=== PATIENT | male | born 1960 | race Caucasian/White ===

== ENCOUNTER → 2020-02-13 14:46 | Outpatient (BNVA) | payer MEDICAID, SELFPAY | PROVIDERS: PCP Emergency Medicine; Visit Provider Anesthesiology | DX: G58.8 Other specified mononeuropathies (principal); M47.816 Spondylosis without myelopathy or radiculopathy, lumbar region; E66.01 Morbid (severe) obesity due to excess calories; Z68.43 Body mass index [BMI] 50.0-59.9, adult | CPT/HCPCS: 99203 ==

== ENCOUNTER 2023-03-17 08:15 | Outpatient (REF) | payer MEDICAID, SELFPAY ==
[2023-03-17 11:38] LABS: Alanine Aminotransferase 35 U/L (0-40); Albumin Level 4.1 g/dL (3.5-5.0); Alkaline Phosphatase 53 U/L (39-117); Anion Gap 11 (12-20); Aspartate Amino Transferase 28 U/L (5-37); Bilirubin Total 0.5 mg/dL (0.0-1.0); Blood Urea Nitrogen 17 mg/dL (9-16); Calcium 9.4 mg/dL (8.4-10.2); Carbon Dioxide 27 mmol/L (22-29); Chloride 103 mmol/L (96-108); Cholesterol 261 mg/dL (<200); Estimated Glomerular Filt Rate > 60; Glucose Random 119 mg/dL (60-115); HDL Cholesterol 64 mg/dL (>40); LDL Cholesterol Calculated 169 mg/dL (<100); Potassium 4.2 mmol/L (3.3-5.1); Sodium 137 mmol/L (135-145); Total Protein 7.4 g/dL (6.5-8.0); Triglycerides 144 mg/dL (<150)
[2023-03-17 11:54] LABS: ~HepC Num1 0.07 S/CO (0.00-0.79); ~Hepatitis C Antibody Nonreactive (Nonreactive)
[2023-03-17 12:11] LABS: Creatinine Urine 52.45 mg/dL; Microalbumin Urine < 5.0 mg/L
== END 2023-03-17 08:16 | disposition home or self-care (01) ==
LOC: HO.HHCL 08:15
PROVIDERS: Visit Provider Nurse Practitioner Family
DX: I10 Essential (primary) hypertension (principal); E11.00 Type 2 diabetes mellitus with hyperosmolarity without nonketotic hyperglycemic-hyperosmolar coma (NKHHC)
CPT/HCPCS: 36415; 80053; 80061; 82043; 82570; 86803

== ENCOUNTER 2023-12-09 07:25 | Emergency (ER) | payer MEDICAID, SELFPAY ==
[2023-12-09 07:30] VITALS: BP 138/68; PULSE 68; RESP 16; TEMP 36.1; O2SAT 97; BMI 41.6
--- NOTE | 2023-12-09 09:14 | ED_ITS ---
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 He states his pain is from his upper back to his lower back. He has notices some tingling in his hands when he goes to bed at night states he had previous back surgeries he had similar sensation that was more constant. He denies any falls or injuries he states he eats and drinks normally denies fevers chills cough or shortness of breath MD elicited complaint: back pain Related Data Home Medications ?Medication ?Instructions ?Recorded ?Confirmed ibuprofen 800 mg tablet 800 mg PO TID 02/13/20 metformin 500 mg tablet 500 mg PO BID 02/13/20 naproxen 500 mg tablet 500 mg PO BID 02/13/20 Previous Rx's ?Medication ?Instructions ?Recorded acetaminophen 325 mg tablet 325 mg PO QID PRN pain #90 tabs 12/09/23 (Tylenol) cyclobenzaprine 5 mg tablet 5 mg PO BEDTIME PRN muscle spasm 12/09/23 #20 tabs prednisone 20 mg tablet 60 mg (3 x 20 mg) PO DAILY Asthma 12/09/23 5 days #15 tabs Allergies Allergy/AdvReac Type Severity Reaction Status Date / Time No Known Allergies Allergy Verified 12/09/23 07:38 [No Known Allergies*] Review of Systems Review of Systems: Review of systems: General: Patient denies any fever chills recent illness or falls Musculoskeletal: Back pain denies any or body aches or other injuries HEENT: denies headache, runny nose, ear pain Respiratory: denies shortness of breath, cough Cardiovascular: no chest pain or palpitations : denies dysuria, frequency Abdomen: no nausea vomiting denies abdominal pain Extremities: no swelling, no pain Skin: no diaphoresis Yes all other systems are reviewed and are negative [facility] Past Medical History Medical History (Updated 12/09/23 @ 09:17 by Hadley Alvarado DO) Spondylosis of lumbar region without myelopathy or radiculopathy Morbid obesity Other specified mononeuropathies Social History Social History Advance Directives: No Advance Directives Information Provided: Yes Physical Exam Vital Signs: Vital Signs: Last Vital Signs Temp 97 F 12/09/23 07:30 Pulse 68 12/09/23 07:30 Resp 16 12/09/23 07:30 BP 138/68 12/09/23 07:30 Pulse Ox 97 12/09/23 07:30 O2 Del Method Room Air 12/09/23 07:30 BMI result Body Mass Index 41.6 General: Well-appearing well-nourished in no signs of distress HEENT: Normocephalic atraumatic Neck: No signs of JVD, no masses no tenderness or lymphadenopathy Cardiovascular: Regular rate and rhythm Respiratory: Clear to auscultation bilaterally Abdomen: Soft nontender no masses Extremities: Normal pedal pulses no signs of edema Skin: Dry warm no rashes Back: No tenderness full ROM Medical Decision Making Medical Decision Making MDM Narrative: Patient has no recent trauma no unexplained weight loss no neurological symptoms weakness numbness anywhere in the body patient is younger than 50 has no fever no intervening drug use no steroid use no history of cancer prostate renal breast or lung no recent surgeries to the back and no tenderness to the back on palpation no fevers chills sweats night pain when he does not have any morning stiffness that lasts longer than 30 minutes Patient looks well start the patient on prednisone send him home with prednisone Tylenol and cyclobenzaprine. Think the patient benefit from following up his surgeon who did his previous back surgeries patient is okay with this plan Differential Diagnosis Differential Diagnoses: The differential diagnosis associated with the presentation includes Back pain back strain tingling of the hands more difficult this could be electrolyte abnormality but since only happens at night it is likely situational I do not think there is any tests that need to do External Record Review External record reviewed: Inpatient record, Office record and Outpatient record Discharge Plan Discharge Clinical Impression: Strain of lumbar region, Lumbar radiculopathy, Thoracic back pain Patient Disposition: Home, Self-Care Instructions: Back Pain (ED), Lower Back Exercises (ED) Additional Instructions: You were seen today for back pain. You were prescribed medications including prednisone and a muscle relaxant called cyclobenzaprine. Please do not drink or operate machinery while taking the cyclobenzaprine. Recommend on these cyclobenzaprine night to help you sleep. If you have any other concerns please do not hesitate to come back to the emergency department. Prescriptions: New acetaminophen [Tylenol] 325 mg tablet 325 mg PO QID PRN (Reason: pain) Qty: 90 0RF prednisone 20 mg tablet 60 mg PO DAILY 5 Days Qty: 15 0RF cyclobenzaprine 5 mg tablet 5 mg PO BEDTIME PRN (Reason: muscle spasm) Qty: 20 0RF Print Language: Pashto
[2023-12-09 09:29] VITALS: BP 138/68; PULSE 68; RESP 16; TEMP 36.1; O2SAT 97
[2023-12-09] MEDS: predniSONE 20 MG TABLET 60 MG PO (09:29)
[2023-12-09] MEDS: Acetaminophen 325 MG TABLET 650 MG PO (09:29)
== END 2023-12-09 09:30 | disposition home or self-care (01) ==
PROVIDERS: Emergency Provider Student in an Organized Health Care Education/Training Program; PCP Internal Medicine
DX: S39.012A Strain of muscle, fascia and tendon of lower back, initial encounter (principal); X58.XXXA Exposure to other specified factors, initial encounter; M54.16 Radiculopathy, lumbar region; M54.6 Pain in thoracic spine; Y93.9 Activity, unspecified; Y92.9 Unspecified place or not applicable; Y99.9 Unspecified external cause status
CPT/HCPCS: 99283

== ENCOUNTER 2024-01-17 09:22 | Outpatient (REF) | payer MEDICAID, SELFPAY ==
[2024-01-17 12:01] LABS: Estimated Average Glucose 148 mg/dL; Hemoglobin A1c % 6.8 % (<6.0)
[2024-01-17 12:10] LABS: Alanine Aminotransferase 34 U/L (0-40); Albumin Level 4.2 g/dL (3.5-5.0); Alkaline Phosphatase 55 U/L (39-117); Anion Gap 12 (12-20); Aspartate Amino Transferase 28 U/L (5-37); Bilirubin Total 0.5 mg/dL (0.0-1.0); Blood Urea Nitrogen 15 mg/dL (9-16); Calcium 9.7 mg/dL (8.4-10.2); Carbon Dioxide 27 mmol/L (22-29); Chloride 102 mmol/L (96-108); Cholesterol 334 mg/dL (<200); Estimated Glomerular Filt Rate > 60; Glucose Random 130 mg/dL (60-115); HDL Cholesterol 60 mg/dL (>40); LDL Cholesterol Calculated 195 mg/dL (<100); Potassium 4.3 mmol/L (3.3-5.1); Sodium 137 mmol/L (135-145); Total Protein 7.6 g/dL (6.5-8.0); Triglycerides 397 mg/dL (<150)
[2024-01-17 12:27] LABS: Prostate Specific Antigen Scr 0.49 ng/mL (<0.05-4.0)
== END 2024-01-17 09:23 | disposition home or self-care (01) ==
LOC: HO.HHCL 09:22
PROVIDERS: Visit Provider Nurse Practitioner Family
DX: Z00.00 Encounter for general adult medical examination without abnormal findings (principal); E78.2 Mixed hyperlipidemia; E11.9 Type 2 diabetes mellitus without complications
CPT/HCPCS: 36415; 80053; 80061; 83036; 84153

== ENCOUNTER 2025-02-20 10:19 | Emergency (ER) | payer MEDICAID, SELFPAY ==
--- NOTE | ~2025-02-20 | XR_ITS ---
EXAMINATION: XR LUMBOSACRAL SPINE CLINICAL INFORMATION: right low back pain COMPARISON: 10/17/2018. TECHNIQUE: Three views of the lumbosacral spine. FINDINGS: No significant scoliosis. There is a normal lumbar lordosis. Alignment is anatomic without subluxation. No acute fracture, compression deformity, or suspicious bone lesion. Superior endplate Schmorl's nodes noted in L1. Sclerosis of the endplates noted at T12-L1, and to a lesser degree at L5-S1. Moderate disc degeneration present at L5-S1, and also at T11-T12. Moderate to severe degeneration noted at T12-L1. Disc spaces otherwise largely preserved. Facets are normally aligned. There are hypertrophic degenerative facet changes most notable spanning L4-S1. The sacrum is intact. There is sclerosis and irregularity of the SI joints suggesting inflammatory arthropathy. There is no soft tissue abnormality. XR/XR lumbar spine 2-3V IMPRESSION: 1. No acute bony abnormality of the lumbar spine. 2. Mild to moderate lumbar spondylosis, mildly worsened particularly at T11-T12 and T12-L1. Mild worsening at L5-S1. 3. Sclerosis and irregularity of the SI joints suggesting inflammatory arthropathy. Electronically signed by: Cameron Tsai MD 02/20/2025 11:14 AM EDT
--- NOTE | ~2025-02-20 | XR_ITS ---
EXAMINATION: XR WRIST 3 OR MORE VIEWS RIGHT HISTORY: pain to right 2nd, 3rd digits COMPARISON: There are no prior studies available for comparison. FINDINGS: Four views of the right wrist including a scaphoid view are submitted. Osseous mineralization is normal. A corticated osseous density at the dorsum of the wrist may represent an old triquetral radial fracture. No definite acute fracture is seen. The joint spaces are preserved. The soft tissues are unremarkable. XR/XR wrist RT min 3V IMPRESSION: No evidence of acute fracture of the right wrist. Electronically signed by: Yung Morales MD 02/20/2025 11:12 AM EDT
--- NOTE | ~2025-02-20 | XR_ITS ---
EXAMINATION: XR KNEE, LEFT CLINICAL INFORMATION: acute on chronic pain COMPARISON: September 04, 2018 TECHNIQUE: Four views of the left knee. FINDINGS: There is moderate narrowing of the medial joint space, similar to the prior. Lateral joint space is minimally narrowed, increased since the prior. There is mild medial subluxation of the distal femur, increased since prior. There are tricompartmental marginal osteophytes, increased from the prior. There is a bony exostosis at the superior aspect of the medial femoral condyle likely from a remote MCL injury. There is a joint effusion. There is faint vascular calcification in the femoral artery. No fracture line is identified. XR/XR knee LT 4V IMPRESSION: Moderate osteoarthritis, increased since 2019. Joint effusion. Suspected remote MCL injury. Electronically signed by: Maycol Wilkerson MD 02/20/2025 11:17 AM EDT
--- NOTE | ~2025-02-20 | XR_ITS ---
EXAMINATION: XR HAND, RIGHT CLINICAL INFORMATION: pain to right 2nd 3rd digits COMPARISON: None available. TECHNIQUE: PA, lateral, and oblique views of the right hand. FINDINGS: There is mild narrowing of DIP joints, most advanced at the third digit. There is subchondral sclerosis, osteophytes, and degenerative cystic change in the head of the third middle phalanx. The fifth PIP joint demonstrates mild narrowing. There are marginal osteophytes and degenerative cystic change involving the second and third MCP joints. There is severe asymmetric narrowing with marginal osteophytes involving the IP joint of thumb and moderate radial subluxation of the distal phalanx. Corticated ossification, likely chronic, is visible dorsal to the carpus. No soft tissue calcifications are evident. There is positive ulnar variance measuring 5 mm. No fracture lines are identified. XR/XR hand RT min 3V IMPRESSION: Moderate degenerative changes. 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 Electronically signed by: Maycol Wilkerson MD 02/20/2025 11:13 AM EDT
[2025-02-20 10:37] VITALS: BP 165/79; PULSE 86; RESP 18; TEMP 37; O2SAT 97; BMI 46.0
--- NOTE | 2025-02-20 10:37 | ED_ITS ---
HPI - General Adult General Chief complaint: General Medical Stated complaint: knee and back pain Time Seen by Provider: 02/20/25 11:39 Source: patient and property damage claims adjustor (all interactions with this patient were facilitated with an [facility] electrical power station technician (Kaylin)) Mode of arrival: ambulatory Limitations: language barrier (all interactions with this patient were facilitated with an [facility] electrical power station technician (Kaylin)) History of Present Illness ED Provider: Anju Pedro PA-C HPI narrative: Patient is a 64 year old assigned male at with a history of right carpal tunnel syndrome, lumbar spondylosis, and left knee pain presenting to the emergency department today with approximately 1 month ago he fell and has been having increased left knee pain, right wrist pain, right hand pain, and low back pain. Patient states that the pain has been getting worse over the last few days and he has not followed up with anyone for any of this in years. Patient denies any other complaints at this time. Patient states that he has previously gotten injections in his left knee and right wrist. Related Data Home Medications ?Medication ?Instructions ?Recorded ?Confirmed ibuprofen 800 mg tablet 800 mg PO TID 02/13/20 metformin 500 mg tablet 500 mg PO BID 02/13/20 naproxen 500 mg tablet 500 mg PO BID 02/13/20 Previous Rx's ?Medication ?Instructions ?Recorded acetaminophen 325 mg tablet 325 mg PO QID PRN pain #90 tabs 12/09/23 (Tylenol) cyclobenzaprine 5 mg tablet 5 mg PO BEDTIME PRN muscle spasm 12/09/23 #20 tabs prednisone 20 mg tablet 60 mg (3 x 20 mg) PO DAILY A sthma 12/09/23 5 days #15 tabs Allergies Allergy/AdvReac Type Severity Reaction Status Date / Time No Known Allergies (No Known Allergy Verified 02/20/25 10:37 Allergies*) Review of Systems Constitutional: Constitutional: Reports as per HPI Eyes: Eyes: Reports as per HPI ENT: Reports as per HPI Cardiovascular: Cardiovascular: Reports as per HPI Respiratory: Respiratory: Reports as per HPI Gastrointestinal: Gastrointestinal: Reports as per HPI Genitourinary: Genitourinary: Reports as per HPI Musculoskeletal: Musculoskeletal: Reports as per HPI Integumentary/Breasts: Skin/Breast: Reports as per HPI Neurologic: Reports as per HPI Psychiatric: Psychiatric: Reports as per HPI Endocrine: Endocrine: Reports as per HPI Hematologic/Lymphatic: Hematologic/Lymphatic: Reports as per HPI Allergic/Immunologic: Allergic/Immunologic: Reports as per HPI [facility] Past Medical History Attestation statement: The following information was validated with the patient. Source: old records reviewed and nursing notes reviewed Medical History Spondylosis of lumbar region without myelopathy or radiculopathy Morbid obesity Other specified mononeuropathies Social History Social History Advance Directives: No Advance Directives Information Provided: No Physical Exam ED Vital Signs: Vital Signs - 24 hr 02/20/25 10:37 02/20/25 11:42 02/20/25 11:58 Temperature 98.6 F 97.8 F 97.8 F Pulse Rate 86 70 70 Respiratory Rate 18 18 18 Blood Pressure 165/79 H 148/79 H 148/79 H Pulse Oximetry 97 98 98 Oxygen Delivery Method Room Air Room Air Room Air BMI result Body Mass Index 46.0 Const General: cooperative, no acute distress, alert and awake Nutritional Appearance: well nourished Orientation/consciousness: patient oriented x3 HENMT Head: Yes normal to inspection and Yes atraumatic Ears: hearing grossly normal bilaterally and external ears normal General nose exam: Normal external nose present, no nasal discharge noted and no epistaxis Face and sinus: Yes normal facial exam, No abrasion and No laceration Mouth: Normal oral and palatal mucosa present, no drooling and no muffled voice Eyes General: appearance normal, both eyes and all related structures Periorbital: periorbital findings normal Eyelids: Yes eyelids normal Conjunctivae: conjunctivae normal Pupils: Equal, round and reactive pupils present EOM: EOMs intact bilaterally Neck Neck: Yes normal visual inspection and Yes full ROM Resp Effort & Inspection: normal respiratory effort and able to speak in complete sentences Neuro General: patient oriented x3, moves all extremities and CN's II-XI intact bilaterally Cranial nerves: Yes Equal, round and reactive pupils present Cognition (Neuro): normal cognition Extrem General: Yes normal to inspection, Yes full ROM and Yes capillary refill normal Psych Appearance: grossly normal Mental Status: mental status grossly normal Affect: normal affect Attitude: cooperative Thought process: Normal thought process present Thought content: Normal thought content present Insight: Good insight present (Psych) Course Course Course Narrative: This is a Rapid Medical Examination (RME) performed by Ana Winslow PA-C in triage. Full HPI, ROS, assessment and treatment plan per primary provider in the Main ED. Hx: 64 yo M hx morbid obesity, arthritis, lumbar radiculopathy, ere for eval of acute on chronic L knee pain. reports injections in L knee 2 yrs ago for arthritis. prescribed motrin for this, has been taking this x1 week without relief. no new injury/trauma/falls. also reporting burning pain to right 2nd and 3rd digits, worse at night. endorses injection to right hand 1 mo ago - follows w/ provider at [facility] for this, cannot recall the name. also endorses R low back pain radiating upward. states my vertebra are hurt . Plan: xrs Medications Administered Discontinued Medications Generic Name Dose Route Start Last Admin Trade Name Freq PRN Reason Stop Dose Admin Ketorolac Tromethamine 15 mg 02/20/25 11:43 02/20/25 11:48 Ketorolac Tromethamine 15 Mg/Ml Vial IM 02/20/25 11:44 15 mg ONCE ONE Administration Procedures Orthopedic Splinting/Casting Left knee: Side: left Lower Extremity Injury Location: knee Lower Extremity Immobilizer: knee immobilizer Other Orthopedic Equipment: crutches Medical Decision Making Medical Decision Making [facility] Narrative: Patient is a 64 year old assigned male at with a history of right carpal tunnel syndrome, lumbar spondylosis, and left knee pain presenting to the emergency department today with approximately 1 month ago he fell and has been having increased left knee pain, right wrist pain, right hand pain, and low back pain. Patient's physical exam was as noted in the physical exam portion of this note. Patient's right wrist and hand x-rays showed no acute process. Patient's left knee showed a possible MCL injury. Patient's lumbar spine x-ray showed no acute process but showed mild-moderate lumbar spondylosis. Given patient's recent fall, worsening pain, and x-ray - will treat as if left knee is sprained and has a possible MCL injury. Patient's right wrist / hand is most consistent with a carpal tunnel flare. Patient's low back pain is acute on chronic. I explained my physical exam findings as well as all test results to the patient. I answered all questions asked by the patient. Patient's left knee was placed in an immobilizer and the patient was given crutches with crutch training. Patient's left lower extremity PMS was intact prior to and after immobilizer placement. Patient was able to demonstrate proper crutch use while in the department. I stressed the importance of the patient taking his medication as directed (either prescribed or as the over the counter packaging recommends). I stressed the importance of the patient following up with his primary care provider and the orthopedic team. I stressed the importance of the patient returning to the emergency department immediately if his symptoms were to worsen or if he were to develop any dizziness, shortness of breath, difficulty breathing, chest pain, blurry vision, loss of vision, nausea, vomiting, abdominal pain, fever, chills, back pain, or any other complaints. Patient verbalized agreement and understanding with this treatment plan and discharge. Differential Diagnosis Differential Diagnoses: The differential diagnosis associated with the presentation includes Left knee sprain Right carpal tunnel Acute on chronic low back pain Admission/Observation Consideration of admission/observation: Escalation of care including admission/observation considered Patient would have been admitted to the hospital had his work up had any findings where hospital admission was appropriate and his clinical presentation warranted hospital admission. Independent Interpretation I performed an independent interpretation of an: Plain X-Ray Interpretation: My interpretation is in agreement with the radiologist's impression of these imaging studies. Reason for Exam: pain to right 2nd 3rd digits EXAMINATION: XR HAND, RIGHT CLINICAL INFORMATION: pain to right 2nd 3rd digits COMPARISON: None available. TECHNIQUE: PA, lateral, and oblique views of the right hand. FINDINGS: There is mild narrowing of DIP joints, most advanced at the third digit. There is subchondral sclerosis, osteophytes, and degenerative cystic change in the head of the third middle phalanx. The fifth PIP joint demonstrates mild narrowing. There are marginal osteophytes and degenerative cystic change involving the second and third MCP joints. There is severe asymmetric narrowing with marginal osteophytes involving the IP joint of thumb and moderate radial subluxation of the distal phalanx. Corticated ossification, likely chronic, is visible dorsal to the carpus. No soft tissue calcifications are evident. There is positive ulnar variance measuring 5 mm. No fracture lines are identified. XR/XR hand RT min 3V IMPRESSION: Moderate degenerative changes. 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 Electronically signed by: Maycol Wilkerson MD 02/20/2025 11:13 AM EDT RP Dictated By: Maycol Wilkerson MD Signed By: Electronically signed by Maycol Wilkerson MD 02/20/25 1113 Reason for Exam: acute on chronic pain EXAMINATION: XR KNEE, LEFT CLINICAL INFORMATION: acute on chronic pain COMPARISON: September 04, 2018 TECHNIQUE: Four views of the left knee. FINDINGS: There is moderate narrowing of the medial joint space, similar to the prior. Lateral joint space is minimally narrowed, increased since the prior. There is mild medial subluxation of the distal femur, increased since prior. There are tricompartmental marginal osteophytes, increased from the prior. There is a bony exostosis at the superior aspect of the medial femoral condyle likely from a remote MCL injury. There is a joint effusion. There is faint vascular calcification in the femoral artery. No fracture line is identified. XR/XR knee LT 4V IMPRESSION: Moderate osteoarthritis, increased since 2019. Joint effusion. Suspected remote MCL injury. Electronically signed by: Maycol Wilkerson MD 02/20/2025 11:17 AM EDT RP Dictated By: Maycol Wilkerson MD Signed By: Electronically signed by Maycol Wilkerson MD 02/20/25 1117 Reason for Exam: right low back pain EXAMINATION: XR LUMBOSACRAL SPINE CLINICAL INFORMATION: right low back pain COMPARISON: 10/17/2018. TECHNIQUE: Three views of the lumbosacral spine. FINDINGS: No significant scoliosis. There is a normal lumbar lordosis. Alignment is anatomic without subluxation. No acute fracture, compression deformity, or suspicious bone lesion. Superior endplate Schmorl's nodes noted in L1. Sclerosis of the endplates noted at T12-L1, and to a lesser degree at L5-S1. Moderate disc degeneration present at L5-S1, and also at T11-T12. Moderate to severe degeneration noted at T12-L1. Disc spaces otherwise largely preserved. Facets are normally aligned. There are hypertrophic degenerative facet changes most notable spanning L4-S1. The sacrum is intact. There is sclerosis and irregularity of the SI joints suggesting inflammatory arthropathy. There is no soft tissue abnormality. XR/XR lumbar spine 2-3V IMPRESSION: 1. No acute bony abnormality of the lumbar spine. 2. Mild to moderate lumbar spondylosis, mildly worsened particularly at T11-T12 and T12-L1. Mild worsening at L5-S1. 3. Sclerosis and irregularity of the SI joints suggesting inflammatory arthropathy. Electronically signed by: Cameron Tsai MD 02/20/2025 11:14 AM EDT Dictated By: Cameron Tsai MD Signed By: Electronically signed by Cameron Tsai MD 02/20/25 1114 Reason for Exam: pain to right 2nd 3rd digits EXAMINATION: XR WRIST 3 OR MORE VIEWS RIGHT HISTORY: pain to right 2nd, 3rd digits COMPARISON: There are no prior studies available for comparison. FINDINGS: Four views of the right wrist including a scaphoid view are submitted. Osseous mineralization is normal. A corticated osseous density at the dorsum of the wrist may represent an old triquetral radial fracture. No definite acute fracture is seen. The joint spaces are preserved. The soft tissues are unremarkable. XR/XR wrist RT min 3V IMPRESSION: No evidence of acute fracture of the right wrist. Electronically signed by: Yung Morales MD 02/20/2025 11:12 AM EDT RP Dictated By: Yung Morales MD Signed By: Electronically signed by Yung Morales MD 02/20/25 1112 Radiology Impression Discussion of test interpretation with radiology: I have reviewed the radiologist's reading. Discharge Plan Discharge Clinical Impression: Knee sprain, Acute carpal tunnel syndrome, Low back pain Patient Disposition: Home, Self-Care Instructions: Knee Sprain (DC), Crutch Instructions (ED), Carpal Tunnel Syndr ome (DC), Knee Immobilizer (ED) Additional Instructions: Your x-ray showed evidence of a possible left knee injury. It is crucial you follow up with the orthopedic team for this. Please wear the knee immobilizer brace for 24 to 48 hours and allow your knee to rest. After 48 hours you can work on gentle range of motion testing of the knee but stop when you have pain and use crutches as needed but can bear weight on your toes. IF you are prescribed home medications and/or you are taking over the counter medications at home- it is very important you continue to do so as prescribed / directed unless told otherwise. SI le recetan medicamentos y/o est? tomando medicamentos de venta law, es muy importante que contin?e haci?ndolo seg?n lo recetado/indicado a menos que le indiquen lo contrario. Follow up with your primary care provider. Return to the emergency department immediately if your symptoms worsen or if you develop any dizziness, shortness of breath, difficulty breathing, chest pain, blurry vision, loss of vision, nausea, vomiting, abdominal pain, fever, chills, back pain, or any other complaints. Juliana?seguimiento?con fontaine m?dico de atenci?n primaria. Acuda inmediatamente al servicio de urgencias si ruddy s?ntomas empeoran o si presenta falta de aliento, dificultad para respirar, dolor tor?cico, mareos, aturdimiento, dolor de espalda, dolor abdominal, fiebre, escalofr?os o cualquier otro s?ntoma. Please see the information below about our Patient Portal. If you are not yet enrolled in the [facility] Patient Portal, you will receive an enrollment email invitation following your visit to any [facility] care setting. You may also self-enroll in the Patient Portal by visiting our website: [email or web address] The following information is required to access the Patient Portal: - Your [facility] Medical Record Number - Your personal home email address (must match what is in your electronic medical record, Registration staff can assist with this) - Name - Date of Capabilities of the Patient Portal: - Message some providers - View upcoming appointments - Access your health summary, medical history, and visit history - View current conditions and allergies - View procedure and lab results - View your medications, including guidelines, side effects, and precautions - Complete pre-appointment questionnaires requested by your provider - Ready summary reports of your office visits and procedures To access the Patient Portal Mobile Thi, follow these directions: - Search [employer] in the Thi Store or Google Talenta Store - Download the Thi - Search for [facility] - Enter your login/password Portal del paciente Si usted no esta inscrito en el portal de pacientes de [facility] y [facility], recibira yasmany invitacion de inscripcion despues de fontaine visita al [facility] o al [facility] via correo electronico. Tambien puede inscribirse voluntariamente en el portal de pacientes visitando nuestra pagina web: [email or web address] La siguiente informacion sera requerida para acceder al portal: - Fontaine barrett de historia medica de [facility] - Fontaine direccion de correo electronico personal - Nombre - Fecha de nacimiento Capacidades: Las siguientes capacidades estan disponibles en el portal de pacientes: - Enviar mensajes a algunos doctores - Verificar proximas citas - Acceso a fontaine historial de ofe, registro medico e historial de visitas - Christie las condiciones actuales y alergias christie procedimientos y resultados del laboratorio - Christie ruddy medicamentos, incluyendo las pautas - Efectos secundarios y precauciones - Completar o llenar formularios / cuestionarios de - Citas solicitadas por fontaine doctor - Leer los resumenes de reportes medicos de ruddy visitas y procedimientos Soila acceder a la aplicacion movil: - [employer] en la Thi Store o [employer] Store - Descargue la aplicacion - [facility] - Ingrese fontaine nombre de usuario / Contrasena Prescriptions: No Action acetaminophen [Tylenol] 325 mg tablet 325 mg PO QID PRN (Reason: pain) Qty: 90 0RF prednisone 20 mg tablet 60 mg PO DAILY 5 Days Qty: 15 0RF cyclobenzaprine 5 mg tablet 5 mg PO BEDTIME PRN (Reason: muscle spasm) Qty: 20 0RF Referrals: [facility] Orthopedic Surgeons [Provider Group] Referral Note: Call to establish and follow up with the orthopedic team for left MCL injury. [facility] [Physician, Medical] Interventions: ED Discharge Assessment Last Done: 02/20/25 11:58 Discharge Date/Time: 02/20/25 11:59 Print Language: Slovak
[2025-02-20 11:42] VITALS: BP 148/79; PULSE 70; RESP 18; TEMP 36.6; O2SAT 98
--- NOTE | 2025-02-20 11:43 | PC.NURSE ---
Addendum entered by Dahiana Durán RN 02/20/25 11:44: pt provided w/ crutch training. Original Note: knee immobilizer applied to left knee - pt tolerated well.
[2025-02-20 11:58] VITALS: BP 148/79; PULSE 70; RESP 18; TEMP 36.6; O2SAT 98
--- OUTSIDE RECORDS SUMMARY | 2025-02-20 16:28 | XMS_ITS | Encounter Summary ---
Author Organization [employer] Address [address] [place] [address] Care Team Providers Care Loss Prevention Detective Name Role Phone Itzel CamarilloP Primary Care Provider [phone] Nicolasa Lorenz NP Primary Care Provider [phone] Reason for Visit * Reason Onset Date Comments Med Refill 12/02/2023 Encounter Details Date Type Department Care Team (Late st Contact Info) Description 12/02/2023 Telephone [facility] [address], [place] [id number] Itzel Camarillo FNP [address], [place] [id number] Med Refill Social History Tobacco Use Types Packs/Day Years Used Date Smoking Tobacco: Never Smokeless Tobacco: Never Alcohol Use Standard Drinks/Week Comments Never 0 (1 standard drink = 0.6 oz pur e alcohol) Depression Answer Date Recorded Patient Health Questionnaire-9 Score 2 07/23/2022 Housing Stability Answer Date Recorded What is your housing situation today? I have kathi del toro 02/16/[address] you li ve. Do you have problems with any of the following? None of the above 02/16/2023 Food Insecurity Answer Date Recorded Within the past 12 months, y ou worried that your food would run out before you got money to buy more: Never True 02/16/2023 Within the past 12 months,th e food you bought just didn't last and you didn't have enough money to get more: Never True Transportation Answer Date Recorded In the past 12 months, has l ack of transportation kept you from medical appts, meetings, work or from getting things needed for daily living? No 02/16/2023 Utilities Answer Date Recorded In the past 12 months, has t he electric, gas, oil or water company threatened to shut off services in your home? No 02/16/2023 Depression Answer Date Recorded Patient Health Questionnaire-2 Score 0 07/23/2022 Sex and Gender Information Value Date Recorded Sex Assigned at Male 03/01/2022 10:35 AM EDT Legal Sex Male 10:35 AM EDT Gender Identity Male 03/01/2022 10:35 AM EDT Sexual Orientation Straight 03/01/2022 10 :35 AM EDT documented as of this encounter Miscellaneous Notes * Telephone Encounter - Jody Skinner LPN - 12/02/2023 1:28 PM EDT Please note medication is no longer active unclear if it was prescribed for short term * Telephone Encounter - Sam Bradford - 12/02/2023 1:24 PM EDT TC from pt requesting medication refill. Medications needing refill : ibuprofen 400 MG tablet To be sent to: [facility]/pharmacy #[facility] documented in this encounter Plan of Treatment Not on file documented as of this encounter Visit Diagnoses Not on filedocumented in this encounter Additional Health Concerns Assessment Noted Time PHQ-9 Depression Total Score: 2 07/24/19 23 3:02 PM EDT documented as of this encounter Care Teams Loss Prevention Detective Relationship Specialty Start Date End Date Itzel Camarillo FNP [address] [place] [address] PCP - General Family Medicine 02/18/22 12/15/23 Nicolasa Lorenz NP [address] [place] [address] PCP - General Family Medicine 12/16/23 documented as of this encounter
--- OUTSIDE RECORDS SUMMARY | 2025-02-20 16:28 | XMS_ITS | Clinical Summary ---
Author Organization [facility] Address [address] [place] [address] Care Team Providers Care Meat Grinder Name Role Phone Valarie Germain [facility] Primary Care Provider [phone] Medical History Medical History Date Comments Eating disorder, unspecified 05/21/2021 DX: Eating disorder, unspecified; COMMENT: Meredith Mcbride PhD Class 3 severe obesity due t o excess calories with body mass index (BMI) of 50.0 to 59.9 in adult ([facility]/HCC V24, [facility] V28) 05/21/2021 DX:Class 3 severe obesity du e to excess calories with body mass index (BMI) of 50.0 to 59.9 in adult (HCC) Essential hypertension 05/21/2021 DX:Essent ial hypertension Type 2 diabetes mellitus wit hout complications ([facility] V24, [facility] V28) 05/21/2021 DX:Type 2 diabetes mellitus without complications ([facility]) Mixed hyperlipidemia 05/21/2021 DX:Mixed hy perlipidemia Social History Tobacco Use Types Packs/Day Years Used Date Smoking Tobacco: Never Smokeless Tobacco: Never Alcohol Use Standard Drinks/Week Comments Yes 0 (1 standard drink = 0.6 oz pur e alcohol) Sex and Gender Information Value Date Recorded Sex Assigned at Not on file Legal Sex Male 11:39 AM EST Gender Identity Not on file Sexual Orientation Not on file Obstetrics History Last Filed Vital Signs Vital Sign Reading Time Taken Comments Blood Pressure 131/77 11/19/2021 12:49 PM EDT Pulse 71 11/19/2021 12:49 PM EDT Temperature - - Respiratory Rate - - Oxygen Saturation - - Inhaled Oxygen Concentration - - Weight 133 kg (293 lb) 12/22/2021 3:38 PM EDT Height 175.3 cm (5' 9 ) 11/19/2021 12:49 PM EDT Body Mass Index 43.27 11/19/2021 12:49 PM EDT Plan of Treatment Health Maintenance Due Date Last Done Comments DTaP,Tdap,and Td Vaccines (1 - Tdap) 1980 Pneumococcal Vaccine: 50+ Ye ars (1 of 1 - PCV) 11/09/2011 Zoster Vaccines (1 of 2) 11/09/2011 Depression Screening 05/02/2024 COVID-19 Vaccine (1 - 2023-2 5 season) 2024 Influenza Vaccine (#1) 2024 RSV Immunization Adult Patie nts (1 - 1-dose 75+ series) 2036 HIB Vaccines Aged Out No longer eligi ble based on patient's age to complete this topic HPV Vaccines Aged Out No longer eligi ble based on patient's age to complete this topic Hepatitis A Vaccines Aged Out No long er eligible based on patient's age to complete this topic Hepatitis B Vaccines Aged Out No long er eligible based on patient's age to complete this topic IPV Vaccines Aged Out No longer eligi ble based on patient's age to complete this topic MMR Vaccines Aged Out No longer eligi ble based on patient's age to complete this topic Meningococcal ACWY Vaccine Aged Out N o longer eligible based on patient's age to complete this topic Meningococcal B Vaccine Aged Out No l onger eligible based on patient's age to complete this topic RSV Immunization Patients Un rafael 20 months Aged Out No longer eligible b ased on patient's age to complete this topic Varicella Vaccines Aged Out No longer eligible based on patient's age to complete this topic Care Teams Meat Grinder Relationship Specialty Start Date End Date Valarie Germain, ANNIE [address] [place], [place] PCP - General Family Medicine 02/06/20
--- OUTSIDE RECORDS SUMMARY | 2025-02-20 16:28 | XMS_ITS | Encounter Summary ---
Author Organization [employer] Address [address] [facility] [address] [address] [place] [address] Care Team Providers Care Consumer Marketing Analyst Name Role Phone GerdaNicolasa CECILLE Primary Care Provider [phone] Encounter Details Date Type Department Care Team (Late st Contact Info) Description 02/20/2025 Orders Only [facility] External Provider, [facility] Social History Tobacco Use Types Packs/Day Years Used Date Smoking Tobacco: Never Smokeless Tobacco: Never Alcohol Use Standard Drinks/Week Comments Never 0 (1 standard drink = 0.6 oz pur e alcohol) Depression Answer Date Recorded Patient Health Questionnaire-9 Score 0 02/01/2025 Patient Health Questionnaire-9 Score 0 02/01/2025 Last PHQ-9: Questionnaire Data Not on file 1 Housing Stability Answer Date Recorded What is your housing situation today? I have kathi del toro 02/01/[address] you li ve. Do you have problems with any of the following? None of the above 02/01/2025 Food Insecurity Answer Date Recorded Within the past 12 months, y ou worried that your food would run out before you got money to buy more: Never True 02/01/2025 Within the past 12 months,th e food you bought just didn't last and you didn't have enough money to get more: Never True 06/2024 Transportation Answer Date Recorded In the past 12 months, has l ack of transportation kept you from medical appts, meetings, work or from getting things needed for daily living? No 01/09/2024 Utilities Answer Date Recorded In the past 12 months, has t he electric, gas, oil or water company threatened to shut off services in your home? No 02/01/2025 Depression Answer Date Recorded Patient Health Questionnaire-2 Score 0 02/01/2025 Internet Access Answer Date Recorded Internet Access Q1 Yes 02/01/2025 Internet Access Q2 Not on file 02/01/2025 Sex and Gender Information Value Date Recorded Sex Assigned at Male 03/01/2022 10:35 AM EDT Legal Sex Male 10:35 AM EDT Gender Identity Male 03/01/2022 10:35 AM EDT Sexual Orientation Straight 03/01/2022 10 :35 AM EDT documented as of this encounter Plan of Treatment Not on file documented as of this encounter Procedures Procedure Name Priority Date/Time Associated Diagnosis Comments XR KNEE 4+ VIEWS LEFT Routine 02/20/2025 10:50 AM EDT XR HAND 3+ VIEWS RIGHT Routine 02/20/2025 10:50 AM EDT XR WRIST 3+ VIEWS RIGHT Routine 02/20/2025 10:50 AM EDT XR LUMBAR SPINE 2-3 VIEWS Routine 02/20/2025 10:50 AM EDT documented in this encounter Results * XR Knee 4+ Views Left (02/20/2025 10:50 AM EDT) Anatomical Region Laterality Modality Lower Extremities, Knee Left [facility] 02/20/2025 10:5 0 AM EDT Narrative 02/20/2025 11:20 AM EDT [place] [address] XRay Report Signed Patient: Sal Karimi MR#: [id number] : 1960 Acct:[id number] Age/Sex: 64 / M ADM Date: 02/20/25 Loc: HO.ED Attending Dr: Ordering Physician: Chela Winslow Date of Service: 02/20/25 Procedure(s): XR knee LT 4V Accession Number(s): [id number] cc: [facility]; Chela Winslow Reason for Exam: acute on chronic pain EXAMINATION: XR KNEE, LEFT CLINICAL INFORMATION: acute on chronic pain COMPARISON: September 04, 2018 TECHNIQUE: Four views of the left knee. FINDINGS: There is moderate narrowing of the medial joint space, similar to the prior. Lateral joint space is minimally narrowed, increased since the prior. There is mild medial subluxation of the distal femur, increased since prior. There are tricompartmental marginal osteophytes, increased from the prior. There is a bony exostosis at the superior aspect of the medial femoral condyle likely from a remote MCL injury. There is a joint effusion. There is faint vascular calcification in the femoral artery. No fracture line is identified. XR/XR knee LT 4V IMPRESSION: Moderate osteoarthritis, increased since 2019. Joint effusion. Suspected remote MCL injury. Electronically signed by: Maycol Wilkerson MD 02/20/2025 11:17 AM EDT Dictated By: Maycol Wilkerson MD Signed By: <Electronically signed by Maycol Wilkerson MD in OV> 02/20/25 1117 DD/ 1050 TD/TT: 02/20/25 1105 Material Handler 1St Shift: Procedure Note Donotuseinterpreter, Image - 02/20/2025 [place] [address] XRay Report Signed Patient: Sal KarimiMR#: [id number] : 1960cct:[id number] Age/Sex: 64 / MADM Date: 02/20/25 Loc: HO.ED Attending Dr: Ordering Physician: Chela Winslow Date of Service: 02/20/25 Procedure(s): XR knee LT 4V Accession Number(s): [id number] cc: [facility]; Chela Winslow Reason for Exam: acute on chronic pain EXAMINATION: XR KNEE, LEFT CLINICAL INFORMATION: acute on chronic pain COMPARISON: September 04, 2018 TECHNIQUE: Four views of the left knee. FINDINGS: There is moderate narrowing of the medial joint space, similar to the prior. Lateral joint space is minimally narrowed, increased since the prior. There is mild medial subluxation of the distal femur, increased since prior. There are tricompartmental marginal osteophytes, increased from the prior. There is a bony exostosis at the superior aspect of the medial femoral condyle likely from a remote MCL injury. There is a joint effusion. There is faint vascular calcification in the femoral artery. No fracture line is identified. XR/XR knee LT 4V IMPRESSION: Moderate osteoarthritis, increased since 2019. Joint effusion. Suspected remote MCL injury. Electronically signed by: Maycol Wilkerson MD 02/20/2025 11:17 AM EDT Dictated By: Maycol Wilkerson MD Signed By: <Electronically signed by Maycol Wilkerson MD in OV> 02/20/25 1117 DD/ 1050 TD/TT: 02/20/25 1105 Material Handler 1St Shift: [facility] External Provider IMG XR PROCEDURES Final Result * XR Lumbar Spine 2-3 Views (02/20/2025 10:50 AM EDT) Anatomical Region Laterality Modality Spine, L-spine Radiographic Chani ging 02/20/2025 10:5 0 AM EDT Narrative 02/20/2025 11:17 AM EDT [place] [address] XRay Report Signed Patient: Sal Karimi MR#: [id number] : 1960 Acct:[id number] Age/Sex: 64 / M ADM Date: 02/20/25 Loc: HO.ED Attending Dr: Ordering Physician: Chela Winslow Date of Service: 02/20/25 Procedure(s): XR lumbar spine 2-3V Accession Number(s): [id number] cc: [facility]; Chela Winslow Reason for Exam: right low back pain EXAMINATION: XR LUMBOSACRAL SPINE CLINICAL INFORMATION: right low back pain COMPARISON: 10/17/2018. TECHNIQUE: Three views of the lumbosacral spine. FINDINGS: No significant scoliosis. There is a normal lumbar lordosis. Alignment is anatomic without subluxation. No acute fracture, compression deformity, or suspicious bone lesion. Superior endplate Schmorl's nodes noted in L1. Sclerosis of the endplates noted at T12-L1, and to a lesser degree at L5-S1. Moderate disc degeneration present at L5-S1, and also at T11-T12. Moderate to severe degeneration noted at T12-L1. Disc spaces otherwise largely preserved. Facets are normally aligned. There are hypertrophic degenerative facet changes most notable spanning L4-S1. The sacrum is intact. There is sclerosis and irregularity of the SI joints suggesting inflammatory arthropathy. There is no soft tissue abnormality. XR/XR lumbar spine 2-3V IMPRESSION: 1. No acute bony abnormality of the lumbar spine. 2. Mild to moderate lumbar spondylosis, mildly worsened particularly at T11-T12 and T12-L1. Mild worsening at L5-S1. 3. Sclerosis and irregularity of the SI joints suggesting inflammatory arthropathy. Electronically signed by: Cameron Tsai MD 02/20/2025 11:14 AM EDT RP Dictated By: Cameron Tsai MD Signed By: <Electronically signed by Cameron Tsai MD in OV> 02/20/25 1114 DD/ 1050 TD/TT: 02/20/25 1105 Material Handler 1St Shift: Procedure Note Donotuseinterpreter, Image - 02/20/2025 [place] [address] XRay Report Signed Patient: Sal KarimiMR#: [id number] : 1960cct:[id number] Age/Sex: 64 / MADM Date: 02/20/25 Loc: HO.ED Attending Dr: Ordering Physician: Chela Winslow Date of Service: 02/20/25 Procedure(s): XR lumbar spine 2-3V Accession Number(s): [id number] cc: [facility]; Chela Winslow Reason for Exam: right low back pain EXAMINATION: XR LUMBOSACRAL SPINE CLINICAL INFORMATION: right low back pain COMPARISON: 10/17/2018. TECHNIQUE: Three views of the lumbosacral spine. FINDINGS: No significant scoliosis. There is a normal lumbar lordosis. Alignment is anatomic without subluxation. No acute fracture, compression deformity, or suspicious bone lesion. Superior endplate Schmorl's nodes noted in L1. Sclerosis of the endplates noted at T12-L1, and to a lesser degree at L5-S1. Moderate disc degeneration present at L5-S1, and also at T11-T12. Moderate to severe degeneration noted at T12-L1. Disc spaces otherwise largely preserved. Facets are normally aligned. There are hypertrophic degenerative facet changes most notable spanning L4-S1. The sacrum is intact. There is sclerosis and irregularity of the SI joints suggesting inflammatory arthropathy. There is no soft tissue abnormality. XR/XR lumbar spine 2-3V IMPRESSION: 1. No acute bony abnormality of the lumbar spine. 2. Mild to moderate lumbar spondylosis, mildly worsened particularly at T11-T12 and T12-L1. Mild worsening at L5-S1. 3. Sclerosis and irregularity of the SI joints suggesting inflammatory arthropathy. Electronically signed by: Cameron Tsai MD 02/20/2025 11:14 AM EDT Dictated By: Cameron Tsai MD Signed By: <Electronically signed by Cameron Tsai MD in OV> 02/20/25 1114 DD/ 1050 TD/TT: 02/20/25 1105 Material Handler 1St Shift: [facility] External Provider IMG XR PROCEDURES Final Result * XR Hand 3+ Views Right (02/20/2025 10:50 AM EDT) Anatomical Region Laterality Modality Upper Extremities, Hand Right [facility] 02/20/2025 10:5 0 AM EDT Narrative 02/20/2025 11:16 AM EDT [address] [address] XRay Report Signed Patient: Sal Karimi MR#: [id number] : 1960 Acct:[id number] Age/Sex: 64 / M ADM Date: 02/20/25 Loc: HO.ED Attending Dr: Ordering Physician: Chela Winslow Date of Service: 02/20/25 Procedure(s): XR hand RT min 3V Accession Number(s): [id number] cc: [facility]; Chela Winslow Reason for Exam: pain to right 2nd 3rd digits EXAMINATION: XR HAND, RIGHT CLINICAL INFORMATION: pain to right 2nd 3rd digits COMPARISON: None available. TECHNIQUE: PA, lateral, and oblique views of the right hand. FINDINGS: There is mild narrowing of DIP joints, most advanced at the third digit. There is subchondral sclerosis, osteophytes, and degenerative cystic change in the head of the third middle phalanx. The fifth PIP joint demonstrates mild narrowing. There are marginal osteophytes and degenerative cystic change involving the second and third MCP joints. There is severe asymmetric narrowing with marginal osteophytes involving the IP joint of thumb and moderate radial subluxation of the distal phalanx. Corticated ossification, likely chronic, is visible dorsal to the carpus. No soft tissue calcifications are evident. There is positive ulnar variance measuring 5 mm. No fracture lines are identified. XR/XR hand RT min 3V IMPRESSION: Moderate degenerative changes. 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 Electronically signed by: Maycol Wilkerson MD 02/20/2025 11:13 AM EDT Dictated By: Maycol Wilkerson MD Signed By: <Electronically signed by Maycol Wilkerson MD in OV> 02/20/25 1113 DD/ 1050 TD/TT: 02/20/25 1105 Material Handler 1St Shift: Procedure Note Donotuseinterpreter, Image - 02/20/[address] [address] XRay Report Signed Patient: Sal Karimi#: MM [id number] : 1960cct:[id number] Age/Sex: 64 / MADM Date: 02/20/25 Loc: HO.ED Attending Dr: Ordering Physician: Chela Winslow Date of Service: 02/20/25 Procedure(s): XR hand RT min 3V Accession Number(s): [id number] cc: [facility]; Chela Winslow Reason for Exam: pain to right 2nd 3rd digits EXAMINATION: XR HAND, RIGHT CLINICAL INFORMATION: pain to right 2nd 3rd digits COMPARISON: None available. TECHNIQUE: PA, lateral, and oblique views of the right hand. FINDINGS: There is mild narrowing of DIP joints, most advanced at the third digit. There is subchondral sclerosis, osteophytes, and degenerative cystic change in the head of the third middle phalanx. The fifth PIP joint demonstrates mild narrowing. There are marginal osteophytes and degenerative cystic change involving the second and third MCP joints. There is severe asymmetric narrowing with marginal osteophytes involving the IP joint of thumb and moderate radial subluxation of the distal phalanx. Corticated ossification, likely chronic, is visible dorsal to the carpus. No soft tissue calcifications are evident. There is positive ulnar variance measuring 5 mm. No fracture lines are identified. XR/XR hand RT min 3V IMPRESSION: Moderate degenerative changes. 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 Electronically signed by: Maycol Wilkerson MD 02/20/2025 11:13 AM EDT Dictated By: Maycol Wilkerson MD Signed By: <Electronically signed by Maycol Wilkerson MD in OV> 02/20/25 1113 DD/ 1050 TD/TT: 02/20/25 1105 Material Handler 1St Shift: [facility] External Provider IMG XR PROCEDURES Final Result * XR Wrist 3+ Views Right (02/20/2025 10:50 AM EDT) Anatomical Region Laterality Modality Upper Extremities, Wrist Right [facility]ogr [facility] 02/20/2025 10:5 0 AM EDT Narrative 02/20/2025 11:15 AM EDT [address] [address] XRay Report Signed Patient: Sal Karimi MR#: [id number] : 1960 Acct:[id number] Age/Sex: 64 / M ADM Date: 02/20/25 Loc: HO.ED Attending Dr: Ordering Physician: Chela Winslow Date of Service: 02/20/25 Procedure(s): XR wrist RT min 3V Accession Number(s): [id number] cc: [facility]; Chela Winslow Reason for Exam: pain to right 2nd 3rd digits EXAMINATION: XR WRIST 3 OR MORE VIEWS RIGHT HISTORY: pain to right 2nd, 3rd digits COMPARISON: There are no prior studies available for comparison. FINDINGS: Four views of the right wrist including a scaphoid view are submitted. Osseous mineralization is normal. A corticated osseous density at the dorsum of the wrist may represent an old triquetral radial fracture. No definite acute fracture is seen. The joint spaces are preserved. The soft tissues are unremarkable. XR/XR wrist RT min 3V IMPRESSION: No evidence of acute fracture of the right wrist. Electronically signed by: Yung Morales MD 02/20/2025 11:12 AM EDT RP Dictated By: Yung Morales MD Signed By: <Electronically signed by Yung Morales MD in OV> 02/20/25 1112 DD/ 1050 TD/TT: 02/20/25 1105 Material Handler 1St Shift: Procedure Note Donotuseinterpreter, Image - 02/20/2025 [place] [address] XRay Report Signed Patient: Sal KarimiMR#: MM [id number] : 1960cct:[id number] Age/Sex: 64 / MADM Date: 02/20/25 Loc: HO.ED Attending Dr: Ordering Physician: Chela Winslow Date of Service: 02/20/25 Procedure(s): XR wrist RT min 3V Accession Number(s): [id number] cc: [facility]; Chela Winslow Reason for Exam: pain to right 2nd 3rd digits EXAMINATION: XR WRIST 3 OR MORE VIEWS RIGHT HISTORY: pain to right 2nd, 3rd digits COMPARISON: There are no prior studies available for comparison. FINDINGS: Four views of the right wrist including a scaphoid view are submitted. Osseous mineralization is normal. A corticated osseous density at the dorsum of the wrist may represent an old triquetral radial fracture. No definite acute fracture is seen. The joint spaces are preserved. The soft tissues are unremarkable. XR/XR wrist RT min 3V IMPRESSION: No evidence of acute fracture of the right wrist. Electronically signed by: Yung Morales MD 02/20/2025 11:12 AM EDT RP Dictated By: Yung Morales MD Signed By: <Electronically signed by Yung Morales MD in OV> 02/20/25 1112 DD/ 1050 TD/TT: 02/20/25 1105 Material Handler 1St Shift: [facility] External Provider IMG XR PROCEDURES Final Result documented in this encounter Visit Diagnoses Not on filedocumented in this encounter Additional Health Concerns Assessment Noted Time PHQ-9 Depression Total Score: 0 02/02/20 11:37 AM EDT documented as of this encounter Care Teams Consumer Marketing Analyst Relationship Specialty Start Date End Date Nicolasa Lorenz NP [address] [place] [id number] PCP - General Family Medicine 12/16/23 documented as of this encounter
--- OUTSIDE RECORDS SUMMARY | 2025-02-20 16:28 | XMS_ITS | Encounter Summary ---
Author Organization [employer] Address [address] [facility] [address] [place] [address] Care Team Providers Care Button Station Worker Name Role Phone Itzel Camarillo Primary Care Provider [phone] Nicolasa Lorenz NP Primary Care Provider [phone] Encounter Details Date Type Department Care Team (Late st Contact Info) Description 03/30/2023 Orders Only [facility] [address] [place], [place] [phone] Itzel Camarillo FNP [address] [place] [address] Type 2 diabetes mellitus with hyperosmolarity without coma, without long-term current use of insulin ([facility]) (Primary Dx) Social History Tobacco Use Types Packs/Day Years [...] as of this encounter Plan of Treatment Scheduled Orders Name Type Priority Associated Diagnoses Orde r Schedule Lipid Panel, Standard Lab Routine Type 2 diabetes mellitus with hyperosmolarity without coma, without long-term current use of insulin ([facility]/HCC) Expected: 03/30/2023 (Approximate), Expires: 03/30/2024 documented as of this encounter Visit Diagnoses Diagnosis Type 2 diabetes mellitus with hyperosmolarity without coma, without long-term current use of insulin (HCC)- Primary documented in this encounter Additional Health Concerns Assessment Noted Time PHQ-9 Depression Total Score: 2 07/24/19 23 3:02 PM EDT documented as of this encounter Care Teams Button Station Worker Relationship Specialty Start Date End Date Itzel Camarillo FNP [address] [place] [address] PCP - General Family Medicine 02/18/22 12/15/23 Nicolasa Lorenz NP [address] [place] [address] PCP - General Family Medicine 12/16/23 documented as of this encounter
--- OUTSIDE RECORDS SUMMARY | 2025-02-20 16:28 | XMS_ITS | Clinical Summary ---
Author Organization [facility] Address [address] [place] [address] Care Team Providers Care Installment Account Checker Name Role Phone Valarie Germain NP Primary Care Provider [phone] Social History Tobacco Use Types Packs/Day Years Used Date Smoking Tobacco: Never Assessed Sex and Gender Information Value Date Recorded Sex Assigned at Not on file Gender Identity Not on file Sexual Orientation Not on file Plan of Treatment Health Maintenance Due Date Last Done Comments Hepatitis C Screening 1960 COVID-19 Vaccine (#1) 05/11/1962 Depression Screening 1973 Preventative Health Evaluation 11/09/1979 DTap / Tdap / Td (1 - Tdap) 1980 Colon Cancer Screening (Colonoscopy) 2006 Shingrix-Zoster Vaccine (1 of 2) 11/09/2011 Influenza Vaccine (#1) 2024 RSV Adult > 60+ Yrs or Pregn ant (1 - 1-dose 75+ series) 2036 Hepatitis B Vaccines Aged Out No long er eligible based on patient's age to complete this topic Pneumococcal Vaccine Aged Out No long er eligible based on patient's age to complete this topic RSV Ped < 20 months Aged Out No longe r eligible based on patient's age to complete this topic Care Teams Installment Account Checker Relationship Specialty Start Date End Date Valarie Germain NUCLEAR SUPERVISING OPERATOR [address] [place] [address] PCP - General Family Medicine 02/06/20
--- OUTSIDE RECORDS SUMMARY | 2025-02-20 16:28 | XMS_ITS | Clinical Summary ---
Author Organization [employer] Address [address] [facility] [address] [place] [address] Care Team Providers Care Camp Recreation Specialist Name Role Phone Nicolasa Lorenz NP Primary Care Provider [phone] Allergies No known active allergies Medications hydrocortisone 2.5 % creamIndications: Dermatitis Apply pea sized amount to skin bid for 1 week 28 g 023 Active Diclofenac Sodium 1 % gel APPLY 1 APPLICATION TOPICALLY IN THE MORNING, AT NOON, IN THE EVENING AND AT BEDTIME IF NEEDED FOR PAIN FOR UP TO 10 DAYS 100 g 2 024 Active metFORMIN XR (Glucophage-XR) 500 MG 24 hr tablet TAKE 1 TABLET (500 MG) BY MOUTH WITH EVENING MEAL. DO NOT CRUSH, CHEW, OR SPLIT. 024 Active diclofenac (Cataflam) 50 MG tabletIndications :Type 2 diabetes mellitus with other specified complication, without long-term current use of insulin (HCC),Chronic pain of both knees Take 1 tablet (50 mg) by mouth every 12 (twelve) hours if needed (for severe pain, take with food,). 60 tablet 11 025 2025 Active atorvastatin (Lipitor) 40 MG tabletIndications :Mixed hyperlipidemia TAKE 1 TABLET BY MOUTH EVERY DAY 90 tablet 2 Active docusate sodium (Colace) 100 MG capsule Take 1 capsule (100 mg) by mouth if needed each day for constipation. 30 capsule 025 2024 Active tadalafil (Cialis) 20 MG tablet Take 1 tablet (20 mg) by mouth if needed each day for erectile dysfunction. 10 tablet 025 2024 Active Tirzepatide (Mounjaro) 2.5 MG/0.5ML solution auto-injector Inject 2.5 mg under the skin 1 (one) time per week. 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 Eat different types of protein foods in your diet. This can include seafood, lean meats, poultry, beans, peas, lentils, nuts, seeds, soy products, and eggs. Limit foods and beverages higher in added sugars, saturated fat, and sodium. Exercise Recommendations: At least 150 minutes of moderate-intensity physical activity per week, or an equivalent combination of moderate- and vigorous-intensity activity Pain in both wrists 07/13/2024 Morbid obesity (CMS/HCC) 03/26/2024 Assessment & Plan (08/21/2024 3:11 PM EDT): See below, initiate glp-1 Assessment & Plan (04/21/2024 2:51 PM EST): Reviewed eligibility for glp-1 , pt declines at this time but if pt has not made progress pt will consider Acute diffuse otitis externa of left ear 024 Cerumen debris on tympanic membrane of left ear 01/16/2024 Assessment & Plan (01/16/2024 5:24 PM EDT): Debrox ordered as cerumen appears quite dry, Rtc for persistent symptoms Class 3 severe obesity with serious comorbidity and body mass index (BMI) of 40.0 to 44.9 in adult 01/15/2024 Assessment & Plan (01/16/2024 5:22 PM EDT): Sig improvement, continues to walk regularly for exercise Health care maintenance 01/15/2024 Assessment & Plan (01/16/2024 5:25 PM EDT): Psa ordered, Pt reports last colonoscopy normal approximately 6 years ago and was told 10 year recall Metabolic labs as ordered below Hyperlipidemia 10/24/2023 Assessment & Plan (01/16/2024 5:24 PM EDT): Resume statin, labs as ordered below Dysthymia 10/24/2023 Carpal tunnel syndrome 10/24/2023 Binge eating disorder 10/24/2023 Back pain 10/24/2023 Assessment & Plan (04/21/2024 2:51 PM EST): Chronic, pt declines physiatry referral at this time Assessment & Plan (01/16/2024 5:23 PM EDT): Chronic, ibuprofen and topical diclofenac help, and pt reports not taking them daily Arthritis of knee 10/24/2023 Ankle pain 10/05/2022 Compression fracture of L1 lumbar vertebra (CMS/ HCC) 10/05/2022 Chronic thoracic back pain 09/04/2018 Essential hypertension 09/04/2018 Assessment & Plan (09/23/2024 11:46 AM EDT): Above goal today, monitor closely, Usually at goal Assessment & Plan (01/16/2024 5:20 PM EDT): Currently at goal without medications Knee pain 09/04/2018 Phimosis 09/04/2018 Type 2 diabetes mellitus 09/04/2018 Assessment & Plan (02/01/2025 6:52 PM EDT): Orders: POCT Glucose POCT Hgb A1c Assessment & Plan (09/23/2024 11:47 AM EDT): Pt reports increased appetite with trulicity, hesitant but willing to trial higher dosages for potential wt loss efforts. Return to clinic in 1 months Glucose in range Assessment & Plan (08/21/2024 3:10 PM EDT): Pt with increased hgb A1c on metformin and morbid obesity, Initiate glp-1 for better glycemic control and wt management Assessment & Plan (01/16/2024 5:23 PM EDT): Slightly above goal, resume metformin 500 mg. Follow up in 2-3 months labs as ordered below Encounters Date Type Department Care Team Description 02/20/2025 Orders Only [facility] External Provider, [facility] 02/01/2025 11:30 AM EDT Office Visit [facility] [address] [place] [address] Nicolasa Lorenz NP Drug-induced constipation (Primary Dx); Type 2 diabetes mellitus with other specified complication, without long-term current use of insulin (HCC); Erectile dysfunction due to diseases classified elsewhere; Right carpal tunnel syndrome; Encounter for immunization; Encounter for vaccination 02/01/2025 Travel 01/31/2025 Telephone [facility] [address] [place] [address] Nicolasa Lorenz NP CHARTPREP 01/04/2025 Refill [facility] [address] [place] [address] Nicolasa Lorenz NP Mixed hyperlipidemia 12/07/2024 Telephone [facility] [address] [place] [address] Nicolasa Lorenz NP Chart Prep 11/25/2024 Refill 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 ([facility]/HCC); Type 2 diabetes mellitus with other specified complication, without long-term current use of insulin ([facility]) from Last 3 Months Immunizations Immunization Administration Dates Next Due Hep B, adult 06/10/2021,12/24/2020,11/21/2020 Influenza injectable quadriv alent preservative free 03/16/2023,03/05/2022,02/19/2021,03/05 Influenza, IIV3, injectable 09/08/2015, 2 Influenza, seasonal, injecta ble, preservative free 02/01/2025 Pfizer Covid-19 Vaccine 12+ 02/01/2025 Pneumococcal Polysaccharide PPSV23 11/21/2020, Tdap 11/21/2020,09/02/2019,12/21/2010 Zoster, Recombinant 05/22/2021,03/13/2021 Family History Medical History Relation Name Comments Diabetes type II Father Prostate cancer Father's Brother Lung cancer Mother's Brother Relation Name Status Comments Father Father's Brother Mother's Brother Social History Tobacco Use Types Packs/Day Years Used Date Smoking Tobacco: Never Smokeless Tobacco: Never Tobacco Cessation:Counseling Given: Not Answered Alcohol Use Standard Drinks/Week Comments Never 0 [...] Orientation Straight 03/01/2022 10 :35 AM EDT Last Filed Vital Signs Vital Sign Reading Time Taken Comments Blood Pressure 136/76 02/01/2025 11:26 AM EDT Pulse 80 02/01/2025 11:26 AM EDT Temperature 36.7 C (98 F) 02/01/2025 11:26 AM EDT Respiratory Rate 20 02/01/2025 11:26 AM EDT Oxygen Saturation 98% 09/07/2024 4:12 PM EDT Inhaled Oxygen Concentration - - Weight 143 kg (314 lb 12.8 oz) 02/01/2025 11:26 AM EDT Height 177.8 cm (5' 10 ) 02/01/2025 11:26 AM EDT Body Mass Index 45.17 02/01/2025 11:26 AM EDT Plan of Treatment Health Maintenance Due Date Last Done Comments CT Colonography 1961 Colonoscopy 1961 Colorectal Cancer Screening 1961 FIT DNA/Cologuard 1961 FIT 1961 FOBT 1961 HIV Screening 1961 Sigmoidoscopy 1961 Diabetes: Foot Exam 11/09/1971 Alcohol/Substance Use Screening 1973 RSV Patients and Patients Aged 60 years or older (1 - Risk 60-74 years 1-dose series) 2021 Pneumococcal Vaccine: 50+ Years (2 of 2 - PCV) 11/21/2021 11/21/2020, 07/21/2012 Diabetes: Urine Protein Screening 03/17/2024 03/17/2023, 11/05/2021, 07/25/2020, Additional history exists SDOH Screening 01/08/2025 01/09/2024 Lipid Panel 01/16/2025 01/17/2024, 03/02, 11/05/2021, Additional history exists Diabetes: Hemoglobin A1C 08/02/2025 025, 07/13/2024, 01/17/2024, Additional history exists Depression Screening 02/01/2026 02/01/2025, 02/02/20 25 Disability Screening 02/01/2026 02/01/2025 Tobacco Screening 02/01/2026 02/01/2025 Eye Exam 08/10/2026 08/10/2024, 07/31, 08/10/2024, Additional history exists DTaP/Tdap/Td Vaccines (4 - Td or Tdap) 11/21/2030 11/21/2020, 09/02/2019, 12/21/2010 Zoster Vaccines Completed 05/22/2021, 03/13/2021 Hepatitis B Vaccines Completed 06/10/2021, 12/24/2020, 11/21/2020 Hepatitis C Screening Completed 03/17/2023 COVID-19 Vaccine Completed 02/01/2025, , 08/28/2020, Additional history exists Influenza Vaccine Completed 02/01/2025, , 03/05/2022, Additional history exists HIB Vaccines Aged Out No longer eligi [...] patient's age to complete this topic Meningococcal Vaccine Aged Out No surya tavon eligible based on patient's age to complete this topic RSV under 20 months Aged Out No longe r eligible based on patient's age to complete this topic Rotavirus Vaccines Aged Out No longer eligible based on patient's age to complete this topic Procedures Procedure Name Priority Date/Time Associated Diagnosis Comments XR KNEE 4+ VIEWS LEFT Routine 02/20/2025 10:50 AM EDT XR LUMBAR SPINE 2-3 VIEWS Routine 02/20/2025 10:50 AM EDT XR HAND 3+ VIEWS RIGHT Routine 02/20/2025 10:50 AM EDT XR WRIST 3+ VIEWS RIGHT Routine 02/20/2025 10:50 AM EDT POCT GLYCATED HEMOGLOBIN, TOTAL Routine 02/01/2025 11:39 AM EDT Type 2 diabetes mellitus with other specified complication, without long-term current use of insulin (HCC) POCT GLUCOSE Routine 02/01/2025 11:38 AM EDT Type 2 diabetes mellitus with other specified complication, without long-term current use of insulin (HCC) LIPID PANEL, STANDARD Routine 01/17/2024 9:25 AM EDT Mixed hyperlipidemia HEPATITIS C AB W/REFL TO HCV RNA, QN, PCR Routine 03/17/2023 8:16 AM EST Type 2 diabetes mellitus with hyperosmolarity without coma, without long-term current use of insulin (CMS/HCC) ALBUMIN, RANDOM URINE W/CREATININE Routine 03/17/2023 8:16 AM EST Type 2 diabetes mellitus with hyperosmolarity without coma, without long-term current use of insulin (CMS/HCC) from Last 3 Months or Most Recently Relevant to Health Maintenance Results * XR Knee 4+ Views Left (02/20/2025 10:50 AM EDT) Anatomical Region Laterality Modality Lower Extremities, Knee Left [facility] 02/20/2025 10:5 0 AM EDT Narrative 02/20/2025 11:20 AM EDT [address] [address] XRay Report Signed Patient: Sal Karimi MR#: [id number] : 1960 Acct:[id number] Age/Sex: 64 / M ADM Date: 02/20/25 Loc: HO.ED Attending Dr: Ordering Physician: Chela Winslow Date of Service: 02/20/25 Procedure(s): XR knee LT 4V Accession Number(s): [id number] cc: [facility]; Chela Winslow Reason for Exam: acute [...] 02/20/25 1117 DD/ 1050 TD/TT: 02/20/25 1105 Director Trading: Procedure Note Donotuseinterpreter, Image - 02/20/[address] [address] XRay Report Signed Patient: Sal KarimiMR#: [id number] : 2Acct:[id number] Age/Sex: 64 / MADM Date: 02/20/25 Loc: HO.ED Attending Dr: Ordering Physician: Chela Winslow Date of Service: 02/20/25 Procedure(s): XR knee LT 4V Accession Number(s): [id number] cc: [facility]; Chela Winslow Reason for Exam: acute [...] 02/20/25 1117 DD/ 1050 TD/TT: 02/20/25 1105 Director Trading: [facility] External Provider IMG XR PROCEDURES Final Result * XR Hand 3+ Views Right (02/20/2025 10:50 AM EDT) Anatomical Region Laterality Modality Upper Extremities, Hand Right Radiogra phic Imaging 02/20/2025 10:5 0 AM EDT Narrative 02/20/2025 11:16 AM EDT [address] [address] XRay Report Signed Patient: Sal Karimi MR#: [id number] : 1960 Acct:[id number] Age/Sex: 64 / M ADM Date: 02/20/25 Loc: HO.ED Attending Dr: Ordering Physician: Chela Winslow Date of Service: 02/20/25 Procedure(s): XR hand RT min 3V Accession Number(s): [id number] cc: [facility]; Chela Winslow Reason for Exam: pain [...] Maycol Wilkerson MD 02/20/2025 11:13 AM EDT RP Dictated By: Maycol Wilkerson MD Signed By: <Electronically signed by Maycol Wilkerson MD in OV> 02/20/25 1113 DD/ 1050 TD/TT: 02/20/25 1105 Director Trading: Procedure Note Donotuseinterpreter, Image - 02/20/[address] [address] XRay Report Signed Patient: Sal KarimiMR#: [id number] : 1960cct:[id number] Age/Sex: 64 / MADM Date: 02/20/25 Loc: HO.ED Attending Dr: Ordering Physician: Chela Winslow Date of Service: 02/20/25 Procedure(s): XR hand RT min 3V Accession Number(s): [id number] cc: [facility]; Chela Winslow Reason for Exam: pain [...] 02/20/25 1113 DD/ 1050 TD/TT: 02/20/25 1105 Director Trading: [facility] External Provider IMG XR PROCEDURES Final Result * XR Wrist 3+ Views Right (02/20/2025 10:50 AM EDT) Anatomical Region Laterality Modality Upper Extremities, Wrist Right Radiogr aphic Imaging 02/20/2025 10:5 0 AM EDT Narrative 02/20/2025 11:15 AM EDT [address] [address] XRay Report Signed Patient: Sal Karimi MR#: [id number] : 1960 Acct:[id number] Age/Sex: 64 / M ADM Date: 02/20/25 Loc: HO.ED Attending Dr: Ordering Physician: Chela Winslow Date of Service: 02/20/25 Procedure(s): XR wrist RT min 3V Accession Number(s): [id number] cc: [facility]; Chela Winslow Reason for Exam: pain [...] Yung Morales MD 02/20/2025 11:12 AM EDT Dictated By: Yung Morales MD Signed By: <Electronically signed by Yung Morales MD in OV> 02/20/25 1112 DD/ 1050 TD/TT: 02/20/25 1105 Director Trading: Procedure Note Nikki, Image - 02/20/[address] [address] XRay Report Signed Patient: Sal KarimiMR#: [id number] : 1960cct:[id number] Age/Sex: 64 / MADM Date: 02/20/25 Loc: HO.ED Attending Dr: Ordering Physician: Chela Winslow Date of Service: 02/20/25 Procedure(s): XR wrist RT min 3V Accession Number(s): [id number] cc: [facility]; Chela Winslow Reason for Exam: pain [...] Yung Morales MD 02/20/2025 11:12 AM EDT Dictated By: Yung Morales MD Signed By: <Electronically signed by Yung Morales MD in OV> 02/20/25 1112 DD/ 1050 TD/TT: 02/20/25 1105 Director Trading: [facility] External Provider IMG XR PROCEDURES Final Result * XR Lumbar Spine 2-3 Views (02/20/2025 10:50 AM EDT) Anatomical Region Laterality Modality Spine, L-spine Radiographic Chani ging 02/20/2025 10:5 0 AM EDT Narrative 02/20/2025 11:17 AM EDT [place] [address] XRay Report Signed Patient: Sal Karimi MR#: [id number] : 1960 Acct:[id number] Age/Sex: 64 / M ADM Date: 02/20/25 Loc: HO.ED Attending Dr: Ordering Physician: Chela Winslow Date of Service: 02/20/25 Procedure(s): XR lumbar spine 2-3V Accession Number(s): [id number] cc: [facility]; Chela Winslow Reason for Exam: right [...] 02/20/25 1114 DD/ 1050 TD/TT: 02/20/25 1105 Director Trading: Procedure Note Donotuseinterpreter, Image - 02/20/[address] [address] XRay Report Signed Patient: Sal KarimiMR#: [id number] : 1960cct:[id number] Age/Sex: 64 / MADM Date: 02/20/25 Loc: HO.ED Attending Dr: Ordering Physician: Chela Winslow Date of Service: 02/20/25 Procedure(s): XR lumbar spine 2-3V Accession Number(s): [id number] cc: [facility]; Chela Winslow Reason for Exam: right [...] 02/20/25 1114 DD/ 1050 TD/TT: 02/20/25 1105 Director Trading: [facility] External Provider IMG XR PROCEDURES Final Result * (ABNORMAL) POCT Hgb A1c (02/01/2025 11:39 AM EDT) Hemoglobin A1C 6.7(A) 4.0 - 5.7 % Blood 02/01/2025 11:3 9 AM EDT us Nicolasa Lorenz CONSTRUCTION REPRESENTATIVE POINT OF CARE TEST ENTER/EDIT OR DERABLES Final Result * POCT Glucose (02/01/2025 11:38 AM EDT) Glucose Blood, POC 187 60 - 200 mg/dL Blood Capillary blood specimen / Unknown 02/01/2025 11:38 AM EDT us Nicolasa Lorenz CONSTRUCTION REPRESENTATIVE POINT OF CARE TEST ENTER/EDIT OR DERABLES Final Result * (ABNORMAL) Lipid Panel, Standard (01/17/2024 9:25 AM EDT) Triglycerides 397(H) <150 mg/dL [facility] Comment:Desirable Triglyceri de: less than 150 mg/dLBorderline High Triglyceride 150-199 mg/dLHigh Triglyceride: 200-499 mg/dLVery High Triglyceride: greater than or equal to 5OO mg/dL Cholesterol 334(H) <200 mg/dL [facility] Comment:Desirable Cholestero l: less than 200 mg/dLBorderline High Cholesterol: 200-239 mg/dLHigh Cholesterol: greater than 239 mg/dL LDL Cholesterol Calculated 195(H) <100 mg/dL [facility] Comment:Desirable LDL: less than 100 mg/dLNear Optimal/Above Optimal LDL: 110- 129 mg/dLBorderline High LDL: 130-159 mg/dLHigh LDL: 160-189 mg/dLVery High LDL: greater than or equal to 190 mg/dL HDL Cholesterol 60 >40 mg/dL [facility] Comment:Desirable HDL: great er than 40 mg/dL Note: This HDL assay may give artificially low results in patients with liver disease. Blood Venous blood specimen / Unknown 01/17/2024 9:25 AM EDT 01/17/2024 11:41 AM EDT us Nicolasa Lorenz NP LAB BLOOD ORDERABLES Final Resul t [facility] [address] [place] [address] [phone] * Albumin, Random Urine W/Creatinine (03/17/2023 8:16 AM EST) Creatinine, Urine 52.45 mg/dL [facility] Microalbumin Urine <5.0 mg/L [facility] Microalbum Creatinine Ratio Ur TNP <30 ug/mg cr [facility] Comment:Unable to calculate albumin/creatinine ratio due to lowmicroalbumin or creatinine result. Urine (Urine, Random) 03/17/2023 8:16 AM EST 03/17/2023 11:10 AM EST [facility] URINE ORDERABLES Final Resu lt Performing Organization Address [facility] Co de Phone Number [facility] [address] [place] [address] [phone] * Hepatitis C Antibody with Reflex to HCV, RNA, Quantitative, Real-Time PCR (03/17/2023 8:16 AM EST) Hepatitis C Antibody Nonreactive Nonreactive [facility] Comment:Antibodies to HCV no t detected; does not exclude early acuteHCV infection. Blood Venous blood specimen / Unknown 03/17/2023 8:16 AM EST 03/17/2023 11:03 AM EST [facility] Final Resu lt Performing Organization Address City/[facility]/ZIP Co de Phone Number [facility] [address] [place] [address] [phone] from Last 3 Months or Most Recently Relevant to Health Maintenance [place] [address] [place] [address] C3 Care Teams Camp Recreation Specialist Relationship Specialty Start Date End Date Nicolasa Lorenz NP [address] [place] [phone] PCP - General Family Medicine 12/16/23
== END 2025-02-20 11:59 | disposition home or self-care (01) ==
PROVIDERS: Emergency Provider Emergency Medicine
DX: S83.92XA Sprain of unspecified site of left knee, initial encounter (principal); X58.XXXA Exposure to other specified factors, initial encounter; Y93.9 Activity, unspecified; Y92.9 Unspecified place or not applicable; M54.50 Low back pain, unspecified; G56.03 Carpal tunnel syndrome, bilateral upper limbs; M25.562 Pain in left knee; G89.29 Other chronic pain
CPT/HCPCS: 72100; 73110; 73130; 73564; 96372; 99283; 99284; J1885

== ENCOUNTER → 2025-02-20 10:43 | Outpatient (BNV) | payer MEDICAID, SELFPAY | PROVIDERS: Emergency Provider Emergency Medicine; Visit Provider Radiology Diagnostic Radiology | DX: M17.12 Unilateral primary osteoarthritis, left knee (principal); M25.462 Effusion, left knee; M47.815 Spondylosis without myelopathy or radiculopathy, thoracolumbar region; M47.817 Spondylosis without myelopathy or radiculopathy, lumbosacral region; M19.041 Primary osteoarthritis, right hand; M79.644 Pain in right finger(s) | CPT/HCPCS: 72100; 73110; 73130; 73564 ==